=== PATIENT | male | born 1955 | race Asian ===

== ENCOUNTER 2020-08-23 13:27 | Emergency (ER) | payer OTHER ==
[2020-08-23 13:46] VITALS: BP 153/92
--- NOTE | 2020-08-23 14:01 | ED Physician Documentation ---
History of Present Illness - Stated complaint Stated Complaint: LIP SORE - Chief complaint Chief Complaint: Heent - History obtained from History obtained from: Patient, Family - History of Present Illness Timing: Other (2 months) Pain level max: 0 Pain level now: 0 - Additonal information Additional information: 64-year-old male presents to the emergency department with a growths of the left upper lip for the past 2 months. He is visiting from [place]. Here with his family who live in [place]. Nothing makes it better or worse. No drainage. No redness. No fevers. No chills. Patient is a smoker. Review of Systems Constitutional: denies: Fever, Chills Respiratory: denies: Cough GI: denies: Vomiting, Diarrhea Skin: denies: Rash Musculoskeletal: denies: Neck pain, Back pain Neurologic: denies: Headache PD PAST MEDICAL HISTORY - Past Medical History Past Medical History: No - Past Surgical History Past Surgical History: No - Allergies Allergies/Adverse Reactions: Allergies Allergy/AdvReac Type Severity Reaction Status Date / Time No Known Drug Allergies Allergy Verified 08/23/20 13:40 - Living Situation Living Situation: reports: With family Living Arrangement: reports: At home - Social History Does the pt smoke?: Yes PD ED PE NORMAL - Vitals Vital signs reviewed: Yes - General General: Alert and oriented X 3, No acute distress - HEENT HEENT: Moist mucous membranes, Other (There is a 0.3 x 0.3 cm growth to the left upper lip. No redness, no drainage.) - Derm Derm: Warm and dry - Neuro Neuro: Alert and oriented X 3 Results - Vitals Vitals: Vital Signs - 24 hr 08/23/20 13:30 Temperature 36.9 C Heart Rate 69 Respiratory 16 Rate Blood Pressure 153/92 H O2 Saturation 99 Oxygen O2 Source Room air PD MEDICAL DECISION MAKING - ED course Complexity details: considered differential, d/w patient, d/w family ED course: Growth to the left upper lip concerning for basal cell carcinoma versus squamous cell carcinoma. Recommend close follow-up with dermatology this week for further evaluation, possible excision versus biopsy. Patient counseled regarding signs and symptoms for which I believe and urgent re-evaluation would be necessary. Patient with good understanding of and agreement to plan and is comfortable going home at this time This document was made in part using voice recognition software. While efforts are made to proofread this document, sound alike and grammatical errors may occur. Departure - Departure Disposition: 01 Home, Self Care Clinical Impression: Abnormal skin growth Condition: Good Follow-Up: [facility] [Provider Group] - Within 1 week ([address] [place] [address]) Comments: You are to follow-up with dermatology this week. You will likely need a biopsy and possible excision. This is concerning for a skin cancer. The clinic is closed on Tuesday but will be open on Tuesday. Please call Tuesday morning for an appointment. [email or web address] [address] [place] [address]
== END 2020-08-23 14:09 | disposition home or self-care (01) ==
LOC: ED 13:27
DX: L98.9 Disorder of the skin and subcutaneous tissue, unspecified (principal)
CPT/HCPCS: 99281; 99283